=== PATIENT | male | born 1950 | race American Indian/Alaskan Native ===

== ENCOUNTER 2016-12-31 23:29 | Inpatient (IN) | payer MEDICARE ==
[2016-12-31 23:31] VITALS: BMI 41.6
[2017-01-01 00:25] LABS: ADD MANUAL DIFF? NO
[2017-01-01 00:27] LABS: BASO # 0.02 K/mm3 (0.0-2.0); BASO % 0.1 % (0.0-3.0); EOS # 0.2 (0.0-0.7); GRAN # 11.28 (1.4-6.5); GRAN % 72.6 % (50.0-68.0); HEMATOCRIT 46.2 % (42.0-52.0); LYMPH # 2.4 (1.2-3.4); LYMPH % 15.2 % (22.0-35.0); MEAN CELL VOLUME 94.7 fL (80.0-105.0); MEAN CORPUSCULAR HEMOGLOBIN 30.5 pg (25.0-35.0); MEAN CORPUSCULAR HGB CONC 32.3 g/dl (31.0-37.0); MEAN PLATELET VOLUME 12.2 fl (7.0-11.0); MONO # 1.7 (0.1-0.6); MONO % 11.1 % (1.0-6.0); PLATELET COUNT 230 10^3/uL (120.0-450.0); RED CELL DISTRIBUTION WIDTH 12.4 % (11.5-14.5); WHITE BLOOD COUNT 15.6 10^3/ul (4.5-11.0)
--- NOTE | 2017-01-01 00:36 | ED PDOC ---
Arrival/HPI - General Chief Complaint: Chest Pain Time Seen by Provider: 12/31/16 23:56 Historian: Patient - History of Present Illness Narrative History of Present Illness (Text): 01/01/17 00:29 Keenan Paulson is a 66 year old male, whose past medical history includes hypertension, hyperlipidemia, diabetes, prostate CA, leukemia, and pnuemonitis, presents to the emergency department complaining of 5 hour duration of mid- sternal chest pain associated with some mild shortness of breath. States pain radiates upper chest, and notes symptoms feel similar to "reflux" symptoms. Patient informs that pain presented today evening while watching TV, and states chest pain and shortness of breath are currently subsiding. Arrived to emergency department via EMS and was given Aspirin 325mg en route. Denies fever , chills, headache, dizziness, nausea, vomiting, diarrhea, urinary symptoms, or any other complaints at this time. Time/Duration: 4-6 hours (5 hours ) Symptom Onset: Sudden Symptom Course: Improving Severity Level: Mild Activities at Onset: Light Past Medical History - Provider Review Nursing Documentation Reviewed: Yes - Infectious Disease Hx of Infectious Diseases: None - Tetanus Immunization Tetanus Immunization: Unknown - Cardiac Hx Cardiac Arrhythmia: No Hx Congestive Heart Failure: No Hx Hypertension: Yes Hx Internal Defibrillator: No Hx Mitral Valve Prolapse: No Hx Pacemaker: No Hx Peripheral Edema: Yes - Pulmonary Hx Bronchitis: Yes ("pneumonitis") - Neurological Hx Neurological Disorder: No - HEENT Hx HEENT Disorder: Yes Hx Blind: No Hx Cataracts: Yes Hx Deafness: No Hx Difficulty Chewing: No Hx Epistaxis: No Hx Glaucoma: No Hx Macular Degeneration: No - Renal Hx Renal Disorder: No - Endocrine/Metabolic Hx Hyperthyroidism: No Hx Hypothyroidism: No - Hematological/Oncological Hx Cancer: Yes (LEUKEMIA, PROSTATE, COLON) - Integumentary Hx Dermatological Disorder: No - Musculoskeletal/Rheumatological Hx Musculoskeletal Disorders: No - Gastrointestinal Hx Crohn's Disease: No Hx Diverticulitis: No Hx Gastroesophageal Reflux: No Hx Gastrointestinal Ulcer: No Hx Liver Failure: No - Genitourinary/Gynecological Hx Genitourinary Disorders: Yes Hx Hematuria: No Hx Incontinence: No Hx Prostate Problems: Yes (prostate removed) - Psychiatric Hx Depression: No Hx Emotional Abuse: No Hx Physical Abuse: No Hx Substance Use: No - Surgical History Hx Amputation: No Hx Appendectomy: No Hx Cardiac Catheterization: No Hx Cholecystectomy: No Hx Coronary Stent: No Hx Gastric Bypass Surgery: No Hx Hysterectomy: No Hx Joint Replacement: No Hx Kidney Transplant: No Hx Liver Transplant: No Hx Mastectomy: No Hx Open Heart Surgery: No Hx Orthopedic Surgery: No Hx Splenectomy: No Hx Valve Replacement: No - Suicidal Assessment Feels Threatened In Home Enviroment: No Family/Social History - Physician Review Nursing Documentation Reviewed: Yes Family/Social History: No Known Family HX Smoking Status: Never Smoked Hx Alcohol Use: No Hx Substance Use: No Hx Substance Use Treatment: No Allergies/Home Meds Allergies/Adverse Reactions: Allergies No Known Allergies Allergy (Verified 11/10/13 14:39) Home Medications: Home Meds Medication Instructions Recorded Confirmed Acyclovir [Zovirax] 400 mg PO BID 01/01/17 01/01/17 Allopurinol [Zyloprim] 300 mg PO DAILY 01/01/17 01/01/17 Atropine/Diphenoxylate [Lonox 1 tab PO PRN PRN 01/01/17 01/01/17 0.025 MG-2.5 MG] GlipiZIDE [Glucotrol] 5 mg PO DAILY 01/01/17 01/01/17 Ibrutinib [Imbruvica] 140 mg PO TID 01/01/17 01/01/17 Mycophenolate [Cellcept] 250 mg PO DAILY 01/01/17 01/01/17 Pantoprazole [Protonix] 40 mg PO PRN PRN 01/01/17 01/01/17 Sulfamethoxazole/Trimethoprim 1 tab PO .3XW 01/01/17 01/01/17 [Bactrim DS 800 mg-160 mg] predniSONE [predniSONE Tab] 5 mg PO DAILY 01/01/17 01/01/17 Review of Systems - Physician Review All systems were reviewed & negative as marked: Yes - Review of Systems Constitutional: Normal. absent: Fatigue, Fevers Eyes: Normal. absent: Vision Changes, Photophobia Respiratory: SOB. absent: Cough, Sputum Cardiovascular: Chest Pain. absent: Palpitations Gastrointestinal: absent: Abdominal Pain, Diarrhea, Nausea, Vomiting Neurological: Normal. absent: Headache, Dizziness Psychiatric: Normal Physical Exam - Physical Exam Narrative Physical Exam (Text): 01/01/17 00:37 Constitutional: No acute distress. Head: Normocephalic. Atraumatic. Eyes: PERRL. ENT: Moist mucous membranes. Neck: Supple. Cardiovascular: Tachycardia, H.R 105 bpm. Chest: No tenderness. Respiratory: Clear to auscultation bilaterally. GI: Soft. Nontender. Nondistended. Back: No CVA tenderness. Musculoskeletal: No tenderness or swelling of extremities. Skin: No rash. Neurologic: Alert, no focal deficit. Vital Signs Reviewed: Yes Vital Signs Temp Pulse Resp BP Pulse Ox 01/01/17 02:46 98 H 13 105/61 97 12/31/16 23:44 98.9 F 143 H 22 117/69 92 L Temperature: Afebrile Blood Pressure: Normal Pulse: Tachycardic Respiratory Rate: Normal Appearance: Positive for: Well-Appearing, Non-Toxic, Comfortable Pain Distress: None Mental Status: Positive for: Alert and Oriented X 3 Finger Stick Blood Glucose: 202 Medical Decision Making ED Course and Treatment: 01/01/17 00:55 Impression: A 66 year old male who presents to emergency department complaining of mid-sternal chest pain associated with some shortness of breath. Plan: -- EKG -- Labs, cardiac enzymes -- Chest X-ray -- Urine Culture -- Urinalysis -- Reassess and disposition Progress Notes: 01/01/17 00:56 EKG interpreted by me: A-fib @ 145 bpm. Q waves in leads III and aVF. No ST elevations. Repeat EKG: sinus tachycardia @ 101 bpm with PACs. Q wave in leads II, III and aVF. No ST elevations or depressions. 01/01/17 01:30 Chest X-ray interpreted by me: No acute infiltrates or consolidations. Cardiomegaly. Case discussed with Dr. Villanueva, who is aware and agrees with the plan to admit patient to telemetry for new onset atrial fibrillation. Accepts patient under her service with on event mgr consult. - Lab Interpretations Lab Results: 01/01/17 00:10 01/01/17 00:10 Lab Results 01/01/17 00:26: Blood Type A NEGATIVE, Antibody Screen Negative, BBK History Checked Patient has bt 01/01/17 00:10: Sodium 137, Potassium 4.1, Chloride 102, Carbon Dioxide 23, Anion Gap 16, BUN 13, Creatinine 1.0, Est GFR ( Amer) > 60, Est GFR (Non- Af Amer) > 60, Random Glucose 181 H, Calcium 9.7, Total Bilirubin 1.2, AST 33, ALT 51, Alkaline Phosphatase 52, Total Creatine Kinase 172, Troponin I 0.02 D, Total Protein 7.0, Albumin 4.2, Globulin 2.8, Albumin/Globulin Ratio 1.5 01/01/17 00:10: PT 10.5, INR 0.97, APTT 24.1 01/01/17 00:10: WBC 15.6 H, RBC 4.88, Hgb 14.9, Hct 46.2, MCV 94.7, MCH 30.5, MCHC 32.3, RDW 12.4, Plt Count 230, MPV 12.2 H, Gran % 72.6 H, Lymph % (Auto) 15.2 L, [place] % (Auto) 11.1 H, Eos % (Auto) 1.0 L, Baso % (Auto) 0.1, Gran # 11.28 H, Lymph # 2.4, [place] # 1.7 H, Eos # 0.2, Baso # 0.02 12/31/16 23:43: POC Glucose (mg/dL) 202 H - RAD Interpretation Radiology Orders: 01/01/17 00:06 CHEST PORTABLE [RAD] Stat - Medication Orders Current Medication Orders: Discontinued Medications Acetaminophen (Tylenol 325mg Tab) 650 mg PO ONCE ONE Stop: 01/01/17 03:49 Last Admin: 01/01/17 03:56 Dose: 650 mg Re-Assess: MAR Pain/Vitals Document 01/01/17 04:56 DS (Rec: 01/01/17 05:02 DS [id number]) Pain Reassessment Is This A Pain ReAssessment? Yes Presence of Pain Presence of Pain Yes Pain Scale Used Pain Scale Used Numeric Location Pain Location Body Site Chest Description Throbbing Intensity 6 Scale Used Numeric Radiation Location None Variations/Patterns Pt reports no relief of pain. Nitroglycerin (Nitrostat Sl Tab) 0.4 mg SL Q5M [facility] Stop: 01/01/17 03:41 Last Admin: 01/01/17 03:43 Dose: Not Given Non-Admin Reason: BP Parameters Not Met Nitroglycerin (Nitrostat Sl Tab) Confirm Administered Dose 0.4 mg SL .STK-MED ONE Stop: 01/01/17 03:32 Last Admin: 01/01/17 03:35 Dose: Oxycodone HCl (Oxycodone Immediate Release Tab) 5 mg PO ONCE ONE Stop: 01/01/17 05:09 Last Admin: 01/01/17 05:17 Dose: 5 mg - Millieibe Statement The provider has reviewed the documentation as recorded by the Vivi Bueno Provider Attestation: All medical record entries made by the Vivi were at my direction and personally dictated by me. I have reviewed the chart and agree that the record accurately reflects my personal performance of the history, physical exam, medical decision making, and the department course for this patient. I have also personally directed, reviewed, and agree with the discharge instructions and disposition. Disposition/Present on Arrival - Present on Arrival Any Indicators Present on Arrival: No History of DVT/PE: No History of Uncontrolled Diabetes: No Urinary Catheter: No History of Decub. Ulcer: No History Surgical Site Infection Following: None - Disposition Have Diagnosis and Disposition been Completed?: Yes Diagnosis: New onset atrial fibrillation, Chest pain Disposition: HOSPITALIZED Disposition Time: :31 Patient Plan: Admission, Telemetry Condition: GUARDED
[2017-01-01 00:41] LABS: INR 0.97 (0.93-1.08); PARTIAL THROMBOPLASTIN TIME 24.1 Seconds (23.7-30.8)
[2017-01-01 00:47] LABS: ALB/GLOB RATIO 1.5 (1.1-1.8); ALKALINE PHOSPHATASE 52 U/L (38-133); ALT/SGPT 51 U/L (7-56); AST/SGOT 33 U/L (15-59); BILIRUBIN,TOTAL 1.2 mg/dL (0.2-1.3); BLOOD UREA NITROGEN 13 mg/dL (7-21); CALCIUM 9.7 mg/dL (8.4-10.5); CARBON DIOXIDE 23 mmol/L (21-33); CHLORIDE 102 mmol/L (98-107); GFR AFRICAN-AMERICAN > 60; GLUCOSE,RANDOM 181 mg/dL (70-110); POTASSIUM 4.1 mmol/L (3.6-5.0); SODIUM 137 mmol/L (132-148)
[2017-01-01 00:56] LABS: TROPONIN I 0.02 ng/mL
[2017-01-01] MEDS ORDERED: oxyCODONE 5 mg Immediate Release Tab PO ONE (05:08)
[2017-01-01 06:44] LABS: ADD MANUAL DIFF? NO
[2017-01-01 06:54] LABS: BASO # 0.02 K/mm3 (0.0-2.0); BASO % 0.1 % (0.0-3.0); EOS % 0.1 % (1.5-5.0); GRAN # 13.12 (1.4-6.5); GRAN % 82.3 % (50.0-68.0); HEMATOCRIT 42.3 % (42.0-52.0); LYMPH # 0.8 (1.2-3.4); LYMPH % 5.2 % (22.0-35.0); MEAN CELL VOLUME 94.6 fL (80.0-105.0); MEAN CORPUSCULAR HEMOGLOBIN 31.1 pg (25.0-35.0); MEAN CORPUSCULAR HGB CONC 32.9 g/dl (31.0-37.0); MEAN PLATELET VOLUME 11.7 fl (7.0-11.0); MONO % 12.3 % (1.0-6.0); PLATELET COUNT 204 10^3/uL (120.0-450.0); RED CELL DISTRIBUTION WIDTH 12.5 % (11.5-14.5)
[2017-01-01 07:04] LABS: INR 1.03 (0.93-1.08); PARTIAL THROMBOPLASTIN TIME 25.9 Seconds (23.7-30.8)
[2017-01-01 07:10] LABS: ALB/GLOB RATIO 1.5 (1.1-1.8); ALKALINE PHOSPHATASE 45 U/L (38-133); ALT/SGPT 42 U/L (7-56); AST/SGOT 26 U/L (15-59); BILIRUBIN,TOTAL 1.3 mg/dL (0.2-1.3); BLOOD UREA NITROGEN 17 mg/dL (7-21); CALCIUM 9.2 mg/dL (8.4-10.5); CARBON DIOXIDE 24 mmol/L (21-33); CHLORIDE 103 mmol/L (98-107); GFR AFRICAN-AMERICAN > 60; GLUCOSE,RANDOM 228 mg/dL (70-110); POTASSIUM 4.1 mmol/L (3.6-5.0); SODIUM 137 mmol/L (132-148); TOTAL PROTEIN 6.2 g/dL (5.8-8.3)
[2017-01-01 07:19] LABS: TROPONIN I 0.03 ng/mL
[2017-01-01 07:41] LABS: D DIMER 0.31 mg/L FEU (0-0.50)
--- NOTE | 2017-01-01 08:53 | RAD ---
HISTORY: cp, new onset afib COMPARISON: 10/13/2013 FINDINGS: LUNGS: No active pulmonary disease. PLEURA: No significant pleural effusion identified, no pneumothorax apparent. CARDIOVASCULAR: Moderate cardiomegaly OSSEOUS STRUCTURES: No significant abnormalities. VISUALIZED UPPER ABDOMEN: Normal. OTHER FINDINGS: None. IMPRESSION: No active disease.
[2017-01-01 11:00] LABS: CHOLESTEROL 194 mg/dL (130-200)
--- NOTE | 2017-01-01 11:56 | CARD ---
APPROVED REPORT EKG Measurement Heart [id number] <Conclusion> Sinus tachycardia with premature atrial complex Left axis deviation, LAHB PRWP NSSTW changes
--- NOTE | 2017-01-01 11:58 | CARD ---
APPROVED REPORT EKG Measurement Heart [id number] <Conclusion> Atrial fibrillation with rapid ventricular response Left axis deviation Inferior infarct, age undetermined PRWP QS in V1, possible septal WA, age unknown ST & T wave abnormality c/w ischemia
--- NOTE | 2017-01-01 12:28 | CON ---
DATE: 01/01/2017 HISTORY OF PRESENT ILLNESS: The patient is a 66-year-old male who presents with tingling of his ches t as well as his chest wall. This was associated with a narrow complex tachycardia, which might be a trial fibrillation versus an SVT. PAST MEDICAL HISTORY: Notable for diabetes mellitus, hypertension and hyperlipidemia as well as a le ukemia treated with chemotherapy at [facility]. The patient has had no previous cardiac history in the past. He denies angina, denies shortness of b reath. He has suffered a pneumonitis in the past and has been followed by a velocity shooter. Currently, the patient is asymptomatic. SOCIAL HISTORY: The patient does not smoke. REVIEW OF SYSTEMS: A 14-point is free of cardiac symptomatology. PHYSICAL EXAMINATION: VITAL SIGNS: Blood pressure is 140/80, the heart rate is in the 70s, normal sinus rhythm. NECK: Negative JVD. LUNGS: Without rales. HEART: Revealed S1, S2. EXTREMITIES: Without edema. EKG shows a narrow complex tachycardia, either atrial fibrillation versus an SVT. LABORATORIES: Reveal troponins that are negative x 2. Glucose is 228. The hemoglobin is 13.3 with a white count of 16,000. IMPRESSION: 1. Palpitations. 2. Narrow complex tachycardia, either atrial fibrillation versus supraventricular tachycardia, which is now resolved. 3. Diabetes mellitus. 4. Hypertension. 5. Hypercholesterolemia. 6. History of leukemia, which is considered cured after treatment at [facility]. Given these findings, we will obtain an echocardiogram today. We will add a beta ladonna to his dee men. If the patient remains stable over the weekend, he can be discharged. We will arrange for an outpati ent stress test next week. Harmeet Howard MD cc: [phone] TT: 01/01/2017 12:27:59 Confirmation # [id number] Dictation # [id number]
--- NOTE | 2017-01-01 14:19 | CON ---
DATE: 01/01/2017 The patient is in room 275, bed 2. CHIEF COMPLAINT: Elevated WBC count x 1 day duration. HISTORY OF PRESENT ILLNESS: This is a 66-year-old male with past medical history of stage IV chronic lymphocytic leukemia, hypertension, diabetes mellitus, history of bronchitis, history of prostate ca ncer and was being followed at [facility] and had a bone marrow biopsy at [facility] and ad mitted with chest pain, initially found to have an elevated WBC. Infectious disease consultation req uested. The patient at this point states that his chest pain is resolved. He is feeling better. No nausea, no vomiting and he denies any fevers and no chills. No headaches or blurred vision. PAST MEDICAL HISTORY: Significant for diabetes mellitus, hypertension, stage IV CLL, hyperlipidemia, prostate cancer, colon cancer, obesity, BMI of 33. PAST SURGICAL HISTORY: Significant for recent bone marrow biopsy approximately [address] [facility]. ALLERGIES: The patient has no known allergies. MEDICATIONS AT HOME: Include acyclovir, Zyloprim, atropine, Glucotrol, CellCept, Bactrim, prednisone . PHYSICAL EXAMINATION: GENERAL: He is in bed, no acute distress, answering questions. VITAL SIGNS: Temperature of 98, heart rate of 102, respiratory rate of 22 yesterday, is down to 20 t gladis, blood pressure is 130/70. HEENT: Unremarkable. NECK: Supple. LUNGS: Have decreased breath sounds. HEART: Normal S1, S2. ABDOMEN: Soft, nontender. LABORATORY EXAMINATION: Reveals a white count of 16,000, hemoglobin of 13. Coagulation is noted. C hemistries reveal the BUN of 17, creatinine of 1.3. It was 0.9 on last admission. LFTs are normal. There is no urinalysis and the white count in the past has been in the 70,000, 80,000, 90,000 range. The patient had a chest x-ray: No active lung disease. Had an echo which results are not availabl e. The EKG is reviewed. QTC of 459. No microbiology available at this time. ASSESSMENT AND PLAN: A 66-year-old male with chronic lymphocytic leukemia, stage IV; hypertensive, d iabetic with history of prostate cancer, colon cancer and obesity with body mass index of 33, a histo ry of hyperlipidemia and now with tachycardia, dyspnea with systemic inflammatory response syndrome a nd acute kidney injury. Creatinine last admission 0.9, on this admission is 1.3, presenting with jessi st pain and white count of 16,000 with 82% granulocytosis. Must rule out healthcare-associated pneum onia. We will order a CT of the chest since the chest x-ray is reported to be negative. Because of the renal insufficiency, we will not use contrast and cough and chest pain to rule out infiltrate. W e will also order a procalcitonin. We will order blood cultures x 2, urinalysis and urine culture an d we will start empiric antibiotic therapy for healthcare-associated pneumonia with Maxipime and doxy cycline due to the QTC prolongation of 459. We will make further recommendations upon the availabili ty of the initial culture and imaging. Chest pain workup with cardiology as per cardiology, although thus far, 2 troponins are negative which speaks against acute coronary syndrome. [facility]. We will also order Dopplers of the lower extremities to rule out deep venous thr ombosis. Marvin Williamson MD cc: [phone] TT: 01/01/2017 14:18:21 Confirmation # [id number] Dictation # [id number] tn
--- NOTE | 2017-01-01 15:27 | CT ---
PROCEDURE: CT Chest without contrast HISTORY: cough , chest pain,r/o infiltrate COMPARISON: 10/09/2013 TECHNIQUE: Contiguous axial images were obtained through the chest without intravenous contrast enhancement. Sagittal and coronal reconstructions were performed. Radiation dose (DLP): 732 mGy-cm. This CT exam was performed using one or more of the following dose reduction techniques: Automated exposure control, adjustment of the mA and/or kV according to patient size, and/or use of iterative reconstruction technique. FINDINGS: LUNGS: Dense alveolar infiltrates are seen at both lung bases with air bronchograms. Findings are consistent with pneumonia. MEDIASTINUM: Unremarkable thoracic aorta. No aneurysm. Normal sized heart. Main pulmonary artery unremarkable. No vascular congestion. No lymphadenopathy. PLEURA: No pleural fluid. No pneumothorax. BONES: No fracture. No destructive lesion. UPPER ABDOMEN: Grossly unremarkable. OTHER FINDINGS: There is a 3.8 cm mass rising from the left lobe of the thyroid extending into the mediastinum. This is unchanged IMPRESSION: Dense alveolar infiltrates of both lung bases with air bronchograms consistent with pneumonia
[2017-01-01] MEDS ORDERED: Oxycodone/Acetaminophen 5/325 mg Tab PO PRN (16:53)
--- NOTE | 2017-01-01 18:04 | US ---
HISTORY: Leg pain and swelling. Evaluate for DVT PHYSICIAN(S): Harmeet Gamez MD. TECHNIQUE: Duplex sonography and color-flow Doppler with graded compression were used to evaluate the deep venous systems of both lower extremities. FINDINGS: The visualized deep venous systems of both lower extremities are sonographically normal and compressible. Normal wave forms and augmentation are seen. There is no sonographic evidence for deep venous thrombosis in the visualized segments of both lower extremities. IMPRESSION: No sonographic evidence for deep venous thrombosis in the visualized segments of both lower extremities.
[2017-01-01] MEDS: IBRUTINIB 140 MG PO SCH (18:06)
[2017-01-01] MEDS: Vancomycin 25 MG/ML PO SCH ×2 (18:39→22:55)
--- NOTE | 2017-01-01 18:51 | HP ---
HISTORY OF PRESENT ILLNESS: The patient is a 66-year-old patient of . He states last night he started to have aching sensation in the chest. He waited for awhile subside itself, , but he did not feel any improvement. Denies any fever or chills. No history of cough or congestion, no dizziness. The patient is not a very good historian. He did mention that he had some rapid heartbea t. He did not have recent history of any nausea or vomiting. PAST MEDICAL HISTORY: Significant past medical history of 1. Non-insulin dependent diabetes. 2. Hypertension. 3. Hyperlipidemia. 4. Chronic lymphocytic leukemia and is being seen by oncologist in [facility]. 5. History of cancer of prostate. 6. History of cancer of colon. PAST SURGICAL HISTORY: Significant for bone marrow biopsy 2-3 months ago. ALLERGIES: Not allergic to any medications. MEDICATIONS AT HOME: He is on Protonix 40 daily, allopurinol 300 daily, prednisone 5 mg daily, glipi zide 5 mg daily, Zovirax 400 twice a day, Bactrim 1 tablet 3 times a week and CellCept 250 daily and 140 three times a day. SOCIAL HISTORY: Denies smoking, drinking. REVIEW OF SYSTEMS: Significant for tingling in the chest. Complained of pain and shortness of breat h. No nausea, vomiting or diarrhea. VITAL SIGNS: He is afebrile, pulse 95, respirations 20, blood pressure 167/61. LUNGS: Bilateral good airflow, no rhonchi or crackle. HEART: S1, S2 audible. No murmur. LABORATORY DATA: WBC is 16.0, hemoglobin 13.9, hematocrit 42.3, platelets of 204, PT 11.1, INR 1.03. Chemistry: Sodium 137, potassium 4.1, chloride 103, CO2 24, BUN 17, creatinine 1.3, blood sugar of 228. LFTs are within normal limits. Troponin is negative. Had x-ray chest done. CT scan of the c hest shows dense alveolar infiltrate in both bases with air bronchograms consistent with pneumonia. ASSESSMENT: 1. Chest pain, probably secondary to community-acquired pneumonia. 2. Chronic lymphocytic leukemia. 3. Hypertension. 4. Non-insulin dependent diabetes. PLAN: To get blood culture, urine culture and start him on nebulizer treatment. We will renew his m edications including . Continue him on Protonix and also gave him Zovirax and Zyloprim. He has been started on doxycycline and cefepime by ID. Beta ladonna has been added by proof technician. Encou rage out of bed to chair to avoid DVT, order for EFRAIN fernandes. We will reevaluate the patient in a. m. Mary Anne Villanueva MD cc: [phone] TT: 01/01/2017 18:50:21 dn
[2017-01-01 19:02] LABS: URINE BILIRUBIN NEGATIVE (NEGATIVE); URINE BLOOD SMALL (NEGATIVE); URINE GLUCOSE (UA) >=1000 mg/dL (NEGATIVE); URINE KETONE NEGATIVE (NEGATIVE); URINE LEUKOCYTE ESTERASE NEGATIVE Leu/uL (NEGATIVE); URINE PROTEIN TRACE mg/dL (<30 mg/dL); URINE UROBILINOGEN 0.2 E.U./dL (<1 E.U./dL)
[2017-01-01 19:03] LABS: URINE APPEARANCE CLEAR (CLEAR); URINE COLOR LIGHT YELLOW (YELLOW)
[2017-01-01 19:18] LABS: URINE BACTERIA NEG (NEG); URINE EPITHELIAL CELLS 0 - 2 /hpf (0-5); URINE RBC NEGATIVE /hpf (0-2); URINE WBC 0 - 2 /hpf (0-6)
[2017-01-01] MEDS: Levalbuterol 1.25 MG/3 ML Inhal Soln UD IH SCH (20:00)
--- NOTE | 2017-01-01 20:43 | CARD ---
APPROVED REPORT EXAM: Two-dimensional and M-mode echocardiogram with Doppler and color Doppler. INDICATION Atrial Fibrillation Chest Pain SVT 2D DIMENSIONS Left Atrium (2D)4.2 (1.6-4.0cm)IVSd1.4 (0.7-1.1cm) LVDd4.5 (3.9-5.9cm)PWd1.3 (0.7-1.1cm) LVDs3.0 (2.5-4.0cm)FS (%) 33.0 % LVEF (%)61.7 (>50%) M-Mode DIMENSIONS Aortic Root3.70 (2.2-3.7cm)Aortic Cusp Exc.2.00 (1.5-2.0cm) Aortic Valve AoV Peak Aryxlybj737.0cm/Viola Peak GR.8mmHg Mitral Valve MV E Qicnlzfd86.8cm/sMV A Uprnysam17.0cm/sE/A ratio1.1 TDI E/Lateral E'0.0E/Medial E'0.0 Tricuspid Valve TR Peak Ujdrkyis314xs/sRAP [id number] Peak Gr.40mmHg [id number] LEFT VENTRICLE The left ventricle is normal size. There is moderate concentric left ventricular hypertrophy. The left ventricular function is normal. The left ventricular ejection fraction is within the normal range. There is normal LV segmental wall motion. Transmitral Doppler flow pattern is Grade I-abnormal relaxation pattern. RIGHT VENTRICLE The right ventricle is normal size. The right ventricle is mildly hypertrophied. The right ventricular systolic function is normal. ATRIA The left atrium is borderline dilated. The right atrium is mildly dilated. AORTIC VALVE The aortic valve is moderately sclerotic. MITRAL VALVE The mitral valve is moderately thickened. TRICUSPID VALVE There is moderate tricuspid regurgitation. There is moderate pulmonary hypertension. PULMONIC VALVE There is trace pulmonic valvular regurgitation. GREAT VESSELS The aortic root displays moderate sclerocalcific changes of the aortic root. The IVC is normal in size and collapses >50% with inspiration. PERICARDIAL EFFUSION There is no pericardial effusion. <Conclusion> The left ventricle is normal size. There is moderate concentric left ventricular hypertrophy. The left ventricular function is normal. The left ventricular ejection fraction is within the normal range. There is normal LV segmental wall motion. Transmitral Doppler flow pattern is Grade I-abnormal relaxation pattern. There is moderate tricuspid regurgitation. There is moderate pulmonary hypertension.
[2017-01-01] MEDS: Cefepime 1gm in NS 100ml 1 GM/100 ML BAG IVPB SCH (21:46)
[2017-01-01] MEDS: Insulin Lispro (humaLOG) MEDIUM Coverage SC SCH (23:02)
[2017-01-02] MEDS: Levalbuterol 1.25 MG/3 ML Inhal Soln UD IH SCH ×4 (01:07→19:45)
[2017-01-02 06:04] LABS: URINE BILIRUBIN NEGATIVE (NEGATIVE); URINE BLOOD SMALL (NEGATIVE); URINE GLUCOSE (UA) >=1000 mg/dL (NEGATIVE); URINE KETONE NEGATIVE (NEGATIVE); URINE LEUKOCYTE ESTERASE NEGATIVE Leu/uL (NEGATIVE); URINE PROTEIN TRACE mg/dL (<30 mg/dL); URINE UROBILINOGEN 0.2 E.U./dL (<1 E.U./dL)
[2017-01-02] MEDS: Pantoprazole 40 mg EC Tab PO SCH (06:11)
[2017-01-02 06:14] LABS: URINE APPEARANCE CLEAR (CLEAR); URINE COLOR YELLOW (YELLOW)
[2017-01-02 06:28] LABS: URINE BACTERIA SMALL (NEG); URINE EPITHELIAL CELLS 0 - 2 /hpf (0-5); URINE RBC 0 - 2 /hpf (0-2); URINE WBC 0 - 2 /hpf (0-6)
[2017-01-02 07:34] LABS: ADD MANUAL DIFF? NO
[2017-01-02 07:43] LABS: BASO # 0.01 K/mm3 (0.0-2.0); BASO % 0.1 % (0.0-3.0); EOS # 0.1 (0.0-0.7); EOS % 0.7 % (1.5-5.0); GRAN # 9.75 (1.4-6.5); GRAN % 79.4 % (50.0-68.0); HEMATOCRIT 44.1 % (42.0-52.0); LYMPH # 1.1 (1.2-3.4); MEAN CELL VOLUME 94.8 fL (80.0-105.0); MEAN CORPUSCULAR HEMOGLOBIN 30.1 pg (25.0-35.0); MEAN CORPUSCULAR HGB CONC 31.7 g/dl (31.0-37.0); MEAN PLATELET VOLUME 11.6 fl (7.0-11.0); MONO # 1.3 (0.1-0.6); MONO % 10.8 % (1.0-6.0); PLATELET COUNT 196 10^3/uL (120.0-450.0); RED CELL DISTRIBUTION WIDTH 12.7 % (11.5-14.5); WHITE BLOOD COUNT 12.3 10^3/ul (4.5-11.0)
[2017-01-02 07:56] LABS: ALB/GLOB RATIO 1.1 (1.1-1.8); ALKALINE PHOSPHATASE 52 U/L (38-133); ALT/SGPT 42 U/L (7-56); AST/SGOT 23 U/L (15-59); BILIRUBIN,TOTAL 1.4 mg/dL (0.2-1.3); BLOOD UREA NITROGEN 14 mg/dL (7-21); CALCIUM 9.4 mg/dL (8.4-10.5); CARBON DIOXIDE 27 mmol/L (21-33); CHLORIDE 104 mmol/L (98-107); CHOLESTEROL 211 mg/dL (130-200); GFR AFRICAN-AMERICAN > 60; GLUCOSE,RANDOM 161 mg/dL (70-110); SODIUM 139 mmol/L (132-148); TOTAL PROTEIN 7.1 g/dL (5.8-8.3); URIC ACID 6.2 mg/dL (3.5-8.5)
[2017-01-02 08:18] LABS: FREE T4 0.93 ng/dL (0.78-2.19)
[2017-01-02] MEDS: Insulin Lispro (humaLOG) MEDIUM Coverage SC SCH ×4 (08:26→22:16)
[2017-01-02 08:33] LABS: THYROID STIMULATING HORMONE 0.57 mIU/mL (0.46-4.68)
[2017-01-02] MEDS: IBRUTINIB 140 MG PO SCH ×2 (09:14→17:12)
[2017-01-02] MEDS: Cefepime 1gm in NS 100ml 1 GM/100 ML BAG IVPB SCH ×2 (09:22→21:37)
[2017-01-02] MEDS: Vancomycin 25 MG/ML PO SCH (09:28)
[2017-01-02] MEDS ORDERED: Pantoprazole 40 mg EC Tab PO PRN (10:00)
--- NOTE | 2017-01-02 12:26 | PN ---
DATE: 01/02/2017 SUBJECTIVE: The patient is a 66-year-old, seen and examined, anxious to go home for Mother's Day. D enies any fever or chills. No cough or congestion, no palpitation, no headache. PHYSICAL EXAMINATION: VITAL SIGNS: He is afebrile, pulse 80, respirations 20, blood pressure 163/75. LUNGS: Bilateral good airflow, few soft crackles at bases. HEART: S1, S2 audible. ABDOMEN: Soft, obese, nontender, no rebound, no guarding. NEUROLOGIC: He is awake and alert, communicative, ambulatory. LABORATORY EXAMINATION: WBC is 12.3, hemoglobin 14, hematocrit 44, platelet 196. Chemistry: Sodium 139, potassium 4.0, chloride 104, CO2 27, BUN 14, creatinine 1.0, blood sugar 161. Procalcitonin 0. 57. Stool for C. diff is negative. ASSESSMENT: 1. Bilateral basal alveolar infiltrates. 2. Morbid obesity. 3. Non-insulin dependent diabetes. 4. Hypertension. 5. Chronic lymphocytic leukemia under the care of oncologist in [facility]. PLAN: The patient is very anxious to go home. He was explained that because he is immunocompromised , IV antibiotic is very important. He agreed to stay until Wednesday to continue his IV antibiotic. Co ntinue to monitor his blood sugar and cardiac monitoring. Mary Anne Villanueva MD cc: [phone] TT: 01/02/2017 12:25:12 Confirmation # [id number] Dictation # [id number]
--- NOTE | 2017-01-02 13:33 | PN ---
DATE: 01/02/[address] Harmeet Howard. SUBJECTIVE: The patient denies any palpitation. He is slightly short of breath. PHYSICAL EXAMINATION: VITAL SIGNS: Blood pressure 163/75, heart rate 88, temperature 98.4, respirations 20. HEENT: Normocephalic. NECK: No JVD. CHEST: Bibasal crepitations. HEART: S1, S2 regular. EXTREMITIES: 1+ pitting edema. LABORATORIES: Today's CBC: WBC 12.3, hemoglobin 14, hematocrit 44.1, platelet count 196,000. PT, P TT and D-dimer are within normal limits. SMA-7 today is within normal limits except for glucose of 1 61. Echocardiographic study revealed moderate concentric LVH with normal ejection fraction and moder ate pulmonary hypertension. EKG on admission revealed atrial fibrillation with a rapid ventricular r esponse at 145, anterior infarct, age indeterminate; poor R-wave progression,, ST-T wave changes cons istent with ischemia. That was the EKG report and I had difficulty opening the image itself. ASSESSMENT: 1. Palpitation. 2. Narrow complex tachycardia, rapid atrial fibrillation versus supraventricular tachycardia. 3. Hypertension. 4. Hyperlipidemia. 5. Chronic myelocytic leukemia. 6. History of colon cancer. 7. History of prostatic cancer. 8. Bilateral pneumonia. The chest CT scan was consistent with dense alveolar infiltrate of both adithya g bases with air bronchograms. 9. Chronic lymphocytic anemia. RECOMMENDATIONS: Continue current doxycycline 100 mg orally twice a day, oral Flagyl at 500 mg q. 8 hours, Lopressor at 25 mg once a day, prednisone 5 mg once a day, vancomycin at 250 mg p.o. q.i.d., Z ovirax 400 mg p.o. twice a day. Pedro Loyola MD cc: [id number] TT: 01/02/2017 13:33:06 Confirmation # [id number] Dictation # [id number]
[2017-01-02] MEDS ORDERED: IBRUTINIB 140 MG PO SCH ×2 (14:00)
--- NOTE | 2017-01-02 14:01 | PN ---
DATE: 01/02/2017 The patient is in bed in no acute distress, nontoxic. PHYSICAL EXAMINATION: VITAL SIGNS: Temperature is 98, blood pressure is 160/70, respiratory rate of 20, heart rate of 91. HEENT: Unremarkable. NECK: Supple. LUNGS: Decreased breath sounds. HEART: Normal S1, S2. ABDOMEN: Soft, nontender. LABORATORY EXAMINATION: Reveals the white count is down to 12,300, hemoglobin of 14, platelets of 19 6. Chemistries reveal the patient's BUN of 14, creatinine of 1.2, procalcitonin is 0.57. Urinalysis is unremarkable. Microbiology reveals the urine culture has no growth and stool for C. diff antigen and toxin are both negative. Review of the orders reveals the patient to be on p.o. Flagyl, p.o. do xycycline and IV cefepime and p.o. vancomycin. ASSESSMENT AND PLAN: A 66-year-old male with chronic lymphocytic leukemia, stage IV; hypertensive, d iabetes mellitus, history of prostate cancer, colon cancer, obesity with a body mass index of 33, wit h a history of hyperlipidemia with tachycardia, dyspnea and now with sepsis. CAT scan of chest shows dense alveolar infiltrates in both lung bases with air bronchograms consistent with pneumonia. Ultr asound Dopplers of the lower extremities are negative, on p.o. doxycycline and IV cefepime. With the Clostridium difficile toxin and antigen negative, we will discontinue the p.o. Flagyl and p.o. vanco mycin. Would complete 4-7 days. Today is day #2 of 4-7 days of antibiotics for this 66-year-old mal e with chronic lymphocytic leukemia which is stage IV, and sepsis with healthcare-associated pneumoni a. Initial chest x-ray was negative; however, CAT scan does show infiltrates in this patient who ini tially presented with dyspnea and tachycardia. Cultures so far are negative. The patient does have probable bacterial healthcare-associated pneumonia due to elevated procalcitonin and leukocytosis whi appears to be improving. Marvin Williamson MD cc: [id number] TT: 01/02/2017 14:00:43 Confirmation # [id number] Dictation # [id number]
[2017-01-02] MEDS ORDERED: Digoxin 500 mcg/2ml (0.5 mg/2ml) Inj IVP ONE (15:59)
[2017-01-02] MEDS ORDERED: Home Med 1 UNIT PO SCH (18:00)
[2017-01-03] MEDS: Levalbuterol 1.25 MG/3 ML Inhal Soln UD IH SCH ×4 (01:09→21:00)
--- NOTE | 2017-01-03 02:56 | CP.PCM.PN ---
Subjective - Date & Time of Evaluation Date of Evaluation: 01/03/17 Time of Evaluation: 02:54 - Subjective Subjective: Patient was seen at bedside because nurse calls and tells that heart rate went upto 160/min. Confirmed with orthodontic laboratory technician.There were no PVC's.Heart rate is in the 120's now. I already have ordered digoxin 0.25 mg IV . Patient received digoxin 0.25 mg IV earlier about 4 PM which was ordered by for elevated heart rate. has no chest pain, sob, nausea, palpitation. States that he has not been able to sleep. Medical record was reviewed. This 66 year old male was admitted with tingling of chest wall , palpitations, atrial fibrillation vs SVT. Has PMH of HTN ,DM, hyperlipidemia,Chronic Lympahtic lukemia treated with chemotherapy,prostate cancer, colon cancer, obesity,bone marrow biopsy. Objective - Vital Signs/Intake and Output Vital Signs (last 24 hours): Temp Pulse Resp BP Pulse Ox 98.7 F 90 20 148/78 98 01/03/17 00:01 01/03/17 00:01 01/03/17 00:01 01/03/17 01:59 01/02/17 05:50 Intake and Output: 01/02/17 01/03/17 18:59 06:59 Intake Total 480 Balance 480 - Medications Medications: Current Medications Acyclovir (Zovirax) 400 mg PO BID [facility] Last Admin: 01/02/17 17:13 Dose: 400 mg Allopurinol (Zyloprim) 300 mg PO DAILY [facility] Last Admin: 01/02/17 09:21 Dose: 300 mg Doxycycline Hyclate (Doryx) 100 mg PO Q12 [facility] PRN Reason: Protocol Stop: 01/10/17 22:01 Last Admin: 01/02/17 21:37 Dose: 100 mg Glipizide (Glucotrol) 5 mg PO ACB [facility] Last Admin: 01/02/17 09:21 Dose: 5 mg Home Med (Home Med) 3 unit PO DAILY [facility] Last Admin: 01/02/17 17:12 Dose: 3 unit Cefepime HCl (Maxipime 1gm) 1 gm in 100 mls @ 100 mls/hr IVPB Q12 [facility] PRN Reason: Protocol Stop: 01/10/17 22:01 Last Admin: 01/02/17 21:37 Dose: 100 mls/hr Insulin Human Lispro (Humalog Med) 0 units SC ACHS [facility] PRN Reason: Protocol Last Admin: 01/02/17 22:16 Dose: Not Given Levalbuterol HCl (Xopenex) 1.25 mg IH [id number] [facility] Last Admin: 01/03/17 01:09 Dose: Not Given Metoprolol Tartrate (Lopressor) 25 mg PO BID [facility] Last Admin: 01/02/17 17:12 Dose: 25 mg Mycophenolate Mofetil (Cellcept Cap) 250 mg PO DAILY [facility] Last Admin: 01/02/17 09:21 Dose: 250 mg Oxycodone/Acetaminophen (Percocet 5/325 Mg Tab) 1 tab PO Q4H PRN PRN Reason: Pain, moderate (4-7) Stop: 01/04/17 16:54 Pantoprazole Sodium (Protonix Ec Tab) 40 mg PO 0630 [facility] Last Admin: 01/02/17 06:11 Dose: 40 mg Prednisone (Prednisone Tab) 5 mg PO DAILY [facility] Last Admin: 01/02/17 09:21 Dose: 5 mg - Labs Labs: 01/02/17 07:00 01/02/17 07:00 PT 11.1 Seconds (9.9-11.8) 01/01/17 06:30 INR 1.03 (0.93-1.08) 01/01/17 06:30 APTT 25.9 Seconds (23.7-30.8) 01/01/17 06:30 - Constitutional Appears: Well, No Acute Distress - Head Exam Head Exam: ATRAUMATIC, NORMAL INSPECTION, NORMOCEPHALIC - Eye Exam Eye Exam: Normal appearance - ENT Exam ENT Exam: Normal External Ear Exam - Neck Exam Neck Exam: Normal Inspection - Respiratory Exam Respiratory Exam: NORMAL BREATHING PATTERN - Cardiovascular Exam Cardiovascular Exam: absent: JVD - GI/Abdominal Exam GI & Abdominal Exam: absent: Distended - Rectal Exam Rectal Exam: Deferred - Extremities Exam Extremities Exam: Normal Inspection - Back Exam Back Exam: NORMAL INSPECTION - Neurological Exam Neurological Exam: Alert, Oriented x3 - Psychiatric Exam Psychiatric exam: Normal Affect, Normal Mood - Skin Skin Exam: Normal Color Assessment and Plan - Assessment and Plan (Free Text) Assessment: A/P:Atrial fibrillation with RVR. Insomnia/Anxiety. DM. HTN. Hypercholesterolemia. Hx Chronic lymphatic lukemia. Hx Colon cancer, prostate cancer. Digoxin 0.25 mg IV x 1. Xanax 0.5 mg PO x 1. BMP, Magnesium level in AM.
[2017-01-03] MEDS ORDERED: Digoxin 500 mcg/2ml (0.5 mg/2ml) Inj IVP ONE (02:57)
[2017-01-03 03:23] VITALS: PULSE 132
[2017-01-03] MEDS: Pantoprazole 40 mg EC Tab PO SCH (05:59)
[2017-01-03 07:55] LABS: BLOOD UREA NITROGEN 14 mg/dL (7-21); CALCIUM 9.3 mg/dL (8.4-10.5); CARBON DIOXIDE 23 mmol/L (21-33); CHLORIDE 106 mmol/L (95-110); GFR AFRICAN-AMERICAN > 60; GLUCOSE,RANDOM 165 mg/dL (70-110); POTASSIUM 4.1 mmol/L (3.6-5.0); SODIUM 139 mmol/L (132-148)
[2017-01-03] MEDS: Insulin Lispro (humaLOG) MEDIUM Coverage SC SCH ×4 (08:04→21:15)
--- NOTE | 2017-01-03 09:00 | PN ---
DATE: 01/03/2017 The patient is in bed, was seen in [facility], bed 2 this morning. No fevers and chills. PHYSICAL EXAMINATION: VITAL SIGNS: Temperature is 98. Blood pressure is 160/80, respiratory rate of 20, heart rate of 121 . HEENT: Unremarkable. NECK: Supple. LUNGS: Have decreased breath sounds. HEART: Normal S1, S2. ABDOMEN: Soft, nontender. LABORATORY EXAMINATION: Reveals the patient's white count of 12,300 as of yesterday, hemoglobin of 1 4, platelets of 196, BUN of 14, creatinine of 1.0. Procalcitonin is elevated at 0.57, and urinalysis is noted. Microbiology reveals the blood cultures are no growth at 24 hours. Urine cultures are no growth. Stool for C. diff antigen and toxin is negative. Review of the medications reveals the patient to be on doxycycline and cefepime, and the patient is a lso on prednisone. ASSESSMENT AND PLAN: This is a 66-year-old male with chronic lymphocytic leukemia, stage IV, hyperte nsive diabetes, history of prostate cancer, colon cancer, obesity with a body mass index of 33, histo ry of hyperlipidemia, admitted with tachycardia and dyspnea with sepsis. CAT scan of the chest shows alveolar infiltrates in both lung bases with air bronchograms, and on cefepime and doxycycline day # 3. Would complete 4-7 days. He does have elevated procalcitonin. Cultures are negative so far. Th e patient was seen earlier this morning. We will follow closely with you. Marvin Williamson MD cc: [id number] TT: 01/03/2017 08:59:04 Confirmation # [id number] Dictation # [id number]
[2017-01-03] MEDS: IBRUTINIB 140 MG PO SCH (09:59)
[2017-01-03] MEDS: Cefepime 1gm in NS 100ml 1 GM/100 ML BAG IVPB SCH ×2 (10:00→21:16)
--- NOTE | 2017-01-03 10:31 | CARD ---
APPROVED REPORT EKG Measurement Heart [id number] <Conclusion> Atrial fibrillation with rapid ventricular response, new Left axis deviation ST elvations multiple leads, new-R/O acute [place], pericarditis, etc.
--- NOTE | 2017-01-03 11:18 | PN ---
DATE: 01/03/2017 HISTORY OF PRESENT ILLNESS: The patient is a 66-year-old male admitted to the hospital with chest pain. Chest x-ray showed bilateral infiltrates. Denies any fever, chills, rigor. No shortness of breath, no dizziness. He has history of CLL. He sees the doctors at [facility]. He also has history of prostate cancer, status post prostatectomy, history of colon cancer - s/p colectomy, no evidence of recurrence. He is currently on IV antibiotics, as per ID. CT chest showed dense alveolar infiltrate - both lungs, consistent with pneumonia. He also has hypertension. Blood pressure controlled on current medication. He also has diabetes mellitus type 2. Blood sugars controlled with current regimen. PAST MEDICAL HISTORY: Non-insulin dependent diabetes mellitus, hypertension, hyperlipidemia, CLL, prostate cancer, colon cancer. PAST SURGICAL HISTORY: Prostatectomy. ALLERGIES: No known drug allergies. PERSONAL HISTORY: Ex-smoker. HOME MEDICATIONS: Protonix, allopurinol, prednisone, glipizide, Zovirax, Bactrim, CellCept 250 mg daily. FAMILY HISTORY: Noncontributory. No positive family history in mother and father. REVIEW OF SYSTEMS: As per HPI. The rest of 12-point review of systems reviewed and negative. PHYSICAL EXAMINATION: GENERAL: Comfortable in bed, in no acute distress. VITAL SIGNS: Stable. Heart rate is 130 per minute, blood pressure 130/70, temperature 98.2, oxygen saturation 98 % room air. HEENT: Unremarkable. LYMPHS: Lymphadenopathy none. CHEST: Air entry present, equal bilaterally. Bilateral crepitations present. CARDIOVASCULAR: S1, S2 normal, tachycardia plus. ABDOMEN: Soft, nontender. No hepatosplenomegaly. No rebound tenderness. EXTREMITIES: No edema. CENTRAL NERVOUS SYSTEM: Alert, oriented x 3. No focal sensory or motor deficit. SPINE: Nontender. SKIN: No petechia, no rash. CURRENT MEDICATIONS: Zovirax 400 mg b.i.d., allopurinol 300 mg daily, cefepime , Cardizem 60 mg t.i.d., doxycycline 100 mg p.o. q. 12, glipizide 5 mg daily, insulin coverage, as per blood sugar, Lopressor 25 mg p.o. b.i.d., CellCept 250 mg daily, Percocet p.r.n., Protonix 40 mg daily, prednisone 5 mg daily. ASSESSMENT: 1. Chronic lymphocytic leukemia. 2. Bilateral dense alveolar infiltrate. 3. History of prostate cancer. 4. History of colon cancer. 5. Hyperlipidemia. 6. Hypertension. 7. Diabetes mellitus type 2. PLAN: ID consultation Dr. Williamson appreciated. He is currently on IV antibiotics - cefepime and doxycycline. We will continue Zovirax and Bactrim. Prophylaxis, he is currently on allopurinol. Also, we will continue bronchodilators. Blood sugar is controlled on current medication. He is getting glipizide and insulin coverage. He is tachycardic. Cardiology following. He is on diltiazem and beta-blockers. Continue Protonix, and continue prednisone 5 mg daily. CLL - follows at [facility]. Prostate cancer , s/p prostectomy, colon cancer s/p resection - no evidence of recurrence. Thank you, Dr. Villanueva, for allowing us to participate in the patient's care. Kallie Brenann MD cc: [id number] TT: 01/03/2017 11:17:57 Confirmation # [id number] Dictation # [id number] MTDD
[2017-01-03] MEDS: Enoxaparin 60 mg Syringe SC SCH (14:26)
--- NOTE | 2017-01-03 14:39 | PN ---
DATE: 01/03/2017 The patient denies chest pain. He was in rapid atrial fibrillation, required a total of 0.5 mg of in travenous digoxin. Cardizem was initiated at 60 mg t.i.d. today. The patient is currently in atrial fibrillation with controlled heart rate. He denies any dizziness or palpitation. He is still exper iencing mild shortness of breath and cough. PHYSICAL EXAMINATION: VITAL SIGNS: Blood pressure /64, heart rate 59, respirations 20. HEENT: Normocephalic. NECK: No JVD. CHEST: Diminished breath sounds over the bases. HEART: S1, S2 irregular. EXTREMITIES: 1+ pitting edema. LABORATORIES: Today's SMA-7 is within normal limits except for glucose of 165. Three sets of tropon ins were negative. ASSESSMENT: 1. Bilateral pneumonia. 2. Paroxysmal atrial fibrillation. 3. Chronic myelocytic leukemia. 4. History of colon cancer and prostatic cancer. 5. Hyperlipidemia. RECOMMENDATIONS: Continue Cardizem at 60 mg t.i.d., CellCept at 250 mg daily, doxycycline 100 mg twi ce a day, Lopressor 25 mg twice a day, IV Maxipime at 1 gram q. 12 hours. Start Lovenox at 60 mg twi ce a day. Long-term anticoagulation has to be cleared by the stem cutter because of the patient's u nderlying chronic leukemia. Pedro Loyola MD cc: [id number] TT: 01/03/2017 14:38:42 Confirmation # [id number] Dictation # [id number] en
[2017-01-04] MEDS: Enoxaparin 60 mg Syringe SC SCH (01:00)
--- NOTE | 2017-01-04 01:04 | CP.PCM.PN ---
Subjective - Date & Time of Evaluation Date of Evaluation: 01/04/17 Time of Evaluation: 00:59 - Subjective Subjective: S:Patient had requested xanax to help him fall asleep. I went to see patient. He was asleep. I left room. In a few minutes nurse Nasra called and told that patient woke up and asks for xanax. Pertinent medical record was reviewed. O: Last Vital Signs 3 Temp 98.0 F 01/04/17 00:01 Pulse 72 01/04/17 00:01 Resp 18 01/04/17 00:01 BP 136/80 01/04/17 00:01 Pulse Ox 92 L 01/04/17 00:01 Asleep. Not in distress. LUNGS:Normal breathing pattern. A:Anxiety/Insomnia. P:Xanax 0.5 mg PO x 1. Objective - Vital Signs/Intake and Output Vital Signs (last 24 hours): Temp Pulse Resp BP Pulse Ox 98.0 F 72 18 136/80 92 L 01/04/17 00:01 01/04/17 00:01 01/04/17 00:01 01/04/17 00:01 01/04/17 00:01 Intake and Output: 01/03/17 01/04/17 18:59 06:59 Intake Total 1080 Output Total 4 Balance 1076 - Medications Medications: Current Medications Acyclovir (Zovirax) 400 mg PO BID [facility] Last Admin: 01/03/17 17:51 Dose: 400 mg Allopurinol (Zyloprim) 300 mg PO DAILY [facility] Last Admin: 01/03/17 10:01 Dose: 300 mg Diltiazem HCl (Cardizem) 60 mg PO TID [facility] Last Admin: 01/03/17 17:49 Dose: 60 mg Doxycycline Hyclate (Doryx) 100 mg PO Q12 [facility] PRN Reason: Protocol Stop: 01/10/17 22:01 Last Admin: 01/03/17 21:16 Dose: 100 mg Enoxaparin Sodium (Lovenox) 60 mg SC Q12H [facility] PRN Reason: Protocol Last Admin: 01/03/17 14:26 Dose: 60 mg Glipizide (Glucotrol) 5 mg PO ACB [facility] Last Admin: 01/03/17 09:59 Dose: 5 mg Home Med (Home Med) 3 unit PO DAILY [facility] Last Admin: 01/03/17 09:59 Dose: 3 unit Cefepime HCl (Maxipime 1gm) 1 gm in 100 mls @ 100 mls/hr IVPB Q12 [facility] PRN Reason: Protocol Stop: 01/10/17 22:01 Last Admin: 01/03/17 21:16 Dose: 100 mls/hr Insulin Human Lispro (Humalog Med) 0 units SC ACHS [facility] PRN Reason: Protocol Last Admin: 01/03/17 21:15 Dose: Not Given Levalbuterol HCl (Xopenex) 1.25 mg IH [id number] [facility] Last Admin: 01/03/17 21:00 Dose: 1.25 mg Metoprolol Tartrate (Lopressor) 25 mg PO BID [facility] Last Admin: 01/03/17 17:50 Dose: 25 mg Mycophenolate Mofetil (Cellcept Cap) 250 mg PO DAILY [facility] Last Admin: 01/03/17 09:58 Dose: 250 mg Oxycodone/Acetaminophen (Percocet 5/325 Mg Tab) 1 tab PO Q4H PRN PRN Reason: Pain, moderate (4-7) Stop: 01/04/17 16:54 Pantoprazole Sodium (Protonix Ec Tab) 40 mg PO 0630 [facility] Last Admin: 01/03/17 05:59 Dose: 40 mg Prednisone (Prednisone Tab) 5 mg PO DAILY [facility] Last Admin: 01/03/17 10:00 Dose: 5 mg - Labs Labs: 01/02/17 07:00 01/03/17 06:50 PT 11.1 Seconds (9.9-11.8) 01/01/17 06:30 INR 1.03 (0.93-1.08) 01/01/17 06:30 APTT 25.9 Seconds (23.7-30.8) 01/01/17 06:30
[2017-01-04] MEDS: Levalbuterol 1.25 MG/3 ML Inhal Soln UD IH SCH ×2 (02:55→09:42)
[2017-01-04] MEDS ORDERED: Pantoprazole 40 mg EC Tab PO SCH (05:01)
[2017-01-04 06:22] VITALS: O2SAT 94
[2017-01-04] MEDS: Insulin Lispro (humaLOG) MEDIUM Coverage SC SCH ×2 (07:30→12:27)
[2017-01-04] MEDS: Cefepime 1gm in NS 100ml 1 GM/100 ML BAG IVPB SCH (09:42)
[2017-01-04] MEDS: IBRUTINIB 140 MG PO SCH (09:49)
[2017-01-04] MEDS ORDERED: diltiaZEM 180 mg/24 Hours CD Cap PO SCH (11:30)
--- NOTE | 2017-01-04 11:37 | PN ---
DATE: 01/04/2017 The patient is comfortable without shortness of breath, without palpitations. PHYSICAL EXAMINATION: VITAL SIGNS: Blood pressure is 156/76, the heart rate is in the 90s, atrial fibrillation. NECK: Negative JVD. LUNGS: Decreased breath sounds bilaterally. HEART: Reveals S1, S2. EXTREMITIES: Without edema. LABORATORIES: Reveals BUN and creatinine are unremarkable. The glucose is 165. The hemoglobin is d own to 14. IMPRESSION: 1. Atrial fibrillation. 2. Bilateral pneumonia. 3. History of leukemia. 4. Diabetes mellitus. 5. Hypercholesterolemia 6. Hypertension. Given these findings, the patient's heart rate is better controlled on digoxin and Cardizem. We will switch the Cardizem to long acting today and continue the digoxin as well as low dose beta blockers. Awaiting hematologic input on whether the patient can be placed on long-term anticoagulation given hi s recent leukemia. Harmeet Howard MD cc: [id number] TT: 01/04/2017 11:37:19 Confirmation # [id number] Dictation # [id number] en
[2017-01-04 12:34] VITALS: PULSE 84
[2017-01-04 13:04] VITALS: BP 130/63; RESP 20; TEMP 97.4
--- NOTE | 2017-01-04 18:19 | CP.PCM.PN ---
Subjective - Date & Time of Evaluation Date of Evaluation: 01/04/17 Time of Evaluation: 11:30 - Subjective Subjective: Comfortable in bed, not in distress, breathing much better, no cough currently, no fevers overnight. Objective - Vital Signs/Intake and Output Vital Signs (last 24 hours): Temp Pulse Resp BP Pulse Ox 97.4 F L 84 20 130/63 94 L 01/04/17 12:00 01/04/17 12:27 01/04/17 12:00 01/04/17 12:00 01/04/17 06:00 Intake and Output: 01/04/17 01/04/17 06:59 18:59 Intake Total 460 Output Total 600 Balance -140 - Labs Labs: 01/02/17 07:00 01/03/17 06:50 PT 11.1 Seconds (9.9-11.8) 01/01/17 06:30 INR 1.03 (0.93-1.08) 01/01/17 06:30 APTT 25.9 Seconds (23.7-30.8) 01/01/17 06:30 - Constitutional Appears: Non-toxic, No Acute Distress - Head Exam Head Exam: NORMAL INSPECTION - ENT Exam ENT Exam: Mucous Membranes Moist - Neck Exam Neck Exam: absent: Lymphadenopathy, Meningismus - Respiratory Exam Respiratory Exam: Decreased Breath Sounds - Cardiovascular Exam Cardiovascular Exam: +S1, +S2 - GI/Abdominal Exam GI & Abdominal Exam: Soft. absent: Tenderness Assessment and Plan - Assessment and Plan (Free Text) Plan: Assessment Sepsis secondary to healthcare-associated pneumonia, clinically improved CLL Stage 4 obesity with BMI 33 dyslipidemia HTN DM history of prostate CA history colon cancer Plan On Cefepime and Doxycycline day 4; when ready for discharge, the patient can be switched to PO Augmentin and Doxycycline for another 3-[address] Villanueva
--- NOTE | 2017-01-04 19:24 | DS ---
The patient is a 66-year-old, seen and examined, sitting in chair, seems to be comfortable. No cough , no congestion, no nausea or vomiting, no diarrhea. Eating and tolerating, ambulating, no edema, no ulcer. PHYSICAL EXAMINATION: VITAL SIGNS: He is afebrile, pulse 93, respirations 18, blood pressure 156/76. LUNGS: Bilateral fair airflow, no rhonchi or crackle. HEART: S1, S2 audible. ABDOMEN: Soft, obese, nontender, no rebound, no guarding. NEUROLOGIC: He is awake and alert, communicative, ambulatory. LABORATORY EXAM: There is no new lab available today. His blood cultures and urine cultures are neg ative. ASSESSMENT: 1. Bilateral dense basal alveolar infiltrate. 2. History of chronic lymphocytic leukemia. 3. Hypertension. 4. Morbid obesity. 5. Period of atrial fibrillation, but the patient corrected himself. 6. Non-insulin dependent diabetes. 7. History of cancer colon. 8. History of cancer prostate. PLAN: The patient is going to be discharged home today. He is asymptomatic. He is clinically stabl e. He is being discharged home on Augmentin 500 three times a day for 5 days and doxycycline 100 mg twice a day for 5 more days. He will follow up with his PMD and he will resume all his medication as prior to admission according to OCT. Mary Anne Villanueva MD cc: [phone] TT: 01/04/2017 19:24:17 wv
--- NOTE | 2017-01-10 21:44 | PQF SEPSIS ---
01/10/17 Dr. Villanueva, Sepsis is documented on progress notes of 01/02, 01/03, and 01/04 by ID physicians. Do you agree, disagree, undetermined, other with this diagnosis for this patient? If you agree, was sepsis present on admission? Thank you. Clarification of your documentation is requested to better reflect the severity of illness and intensity of treatment of your patient. Indicators present [] Temp < 96.8 or > 100.4 [x] WBC count > 12,000/mm3 or <000/mm3 or 10% immature neutrophils [] Heart Rate > 90 [] Respiratory Rate > 20 [] Fever or hypothermia [x] Chills [] Positive blood cultures [] Hypotension [] Metabolic acidosis (Elevated lactate level, anion gap or reduced blood pH) [] Acute confusion /Altered Mental Status [] Shock [] Other: [] Location in the medical record that reflects the above clinical findings: [] Treatment Provided: [] PHYSICIAN'S RESPONSE Based on your medical judgment of the clinical indicators outlined above, are you treating this patient for a known or suspected: x[] Sepsis / Septicemia Please specify organism if known [] [] SIRS (Systemic Inflammatory Response Syndrome) [] Severe Sepsis (Sepsis with Associated Organ Dysfunction) [] Fever of Unknown Origin [] Other, please indicate: [] [] If Unable to Determine, please check the box, sign and date. Present On Admission (POA) Indicator: [x] Present at the time of admission [] Not present at the time of admission [] Clinically Undetermined In responding to this query, please exercise your independent professional judgment. The fact that a question is asked does not imply that any particular answer is desired or expected. Thank you for your clarification on this documentation. If you have any questions please call:[ ] * Thank you, [ ] plumbing mechanic YENY
== END 2017-01-04 15:24 | disposition home or self-care (01) | DRG 871 ==
LOC: ED 23:29 → ERH 01-01 02:04 → 2RSO 01-01 03:01
PROVIDERS: ADMIT Internal Medicine; ATTEND Internal Medicine
DX: A41.9 Sepsis, unspecified organism (principal); J18.9 Pneumonia, unspecified organism; N17.9 Acute kidney failure, unspecified; C92.10 Chronic myeloid leukemia, BCR/ABL-positive, not having achieved remission; I27.2 Other secondary pulmonary hypertension; C91.10 Chronic lymphocytic leukemia of B-cell type not having achieved remission; I48.0 Paroxysmal atrial fibrillation; I47.1 Supraventricular tachycardia; E66.01 Morbid (severe) obesity due to excess calories; D64.9 Anemia, unspecified; E11.9 Type 2 diabetes mellitus without complications; I10 Essential (primary) hypertension; E78.5 Hyperlipidemia, unspecified; E78.00 Pure hypercholesterolemia, unspecified; F41.9 Anxiety disorder, unspecified; G47.00 Insomnia, unspecified; I45.81 Long QT syndrome; Y95 Nosocomial condition; Z68.33 Body mass index [BMI] 33.0-33.9, adult; Z79.01 Long term (current) use of anticoagulants; Z79.84 Long term (current) use of oral hypoglycemic drugs; Z85.038 Personal history of other malignant neoplasm of large intestine; Z85.46 Personal history of malignant neoplasm of prostate; Z87.891 Personal history of nicotine dependence; Z90.49 Acquired absence of other specified parts of digestive tract; Z90.79 Acquired absence of other genital organ(s); Z92.21 Personal history of antineoplastic chemotherapy; H26.9 Unspecified cataract; R00.0 Tachycardia, unspecified

== ENCOUNTER 2017-03-17 12:02 | Day surgery (SDC) | payer MEDICARE ==
[2017-01-15 11:27] VITALS: BMI 33.7
[2017-03-17 12:47] LABS: BASO # 0.03 K/mm3 (0.0-2.0); BASO % 0.2 % (0.0-3.0); EOS # 0.2 (0.0-0.7); EOS % 1.3 % (1.5-5.0); GRAN # 10.54 (1.4-6.5); HEMOGLOBIN 12.4 gm/dL (14.0-18.0); LYMPH # 1.7 (1.2-3.4); LYMPH % 12.7 % (22.0-35.0); MEAN CELL VOLUME 91.1 fL (80.0-105.0); MEAN CORPUSCULAR HEMOGLOBIN 28.2 pg (25.0-35.0); MEAN PLATELET VOLUME 10.8 fl (7.0-11.0); MONO # 1.1 (0.1-0.6); MONO % 7.8 % (1.0-6.0); PLATELET COUNT 273 10^3/uL (120.0-450.0); RBC 4.39 10^6/uL (3.5-6.1); RED CELL DISTRIBUTION WIDTH 14.6 % (11.5-14.5); WHITE BLOOD COUNT 13.5 10^3/ul (4.5-11.0)
[2017-03-17 12:58] LABS: BLOOD UREA NITROGEN 11 mg/dL (7-21); CALCIUM 9.5 mg/dL (8.4-10.5); GFR AFRICAN-AMERICAN > 60; GFR NON-AFRICAN AMERICAN > 60
[2017-03-17 13:00] LABS: INR 1.06 (0.93-1.08); PARTIAL THROMBOPLASTIN TIME 26.9 Seconds (23.7-30.8); PROTHROMBIN TIME 11.4 Seconds (9.9-11.8)
--- NOTE | 2017-03-17 13:03 | CP.SDSHP ---
Same Day Surgery H & P - History Proposed Procedure: left thoracentesis. Pre-Op Diagnosis: large left pleural effusion,atelactesis. - Previous Medical/Surgical History Cardiac: Hypertension, Arrhythmia Pulmonary: Dyspnea, Other (large left pleural effusion.) Endocrine/Metabolic: Diabetes, Obesity Pain: 0. No Pain Previous Surgical History: TOTAL COLECTOMY,prostatectomy. - Allergies Allergies: Allergies No Known Allergies Allergy (Verified 11/10/13 14:39) - Physical Exam General Appearance: WNL. Mental Status: Alert & Oriented x3 Neuro: WNL Heart: WNL Lungs: Other (RT SIDE CLEAR LEFT ABSENT BREATH SOUNDS.) - {Optional Preform as Required} Other Pertinent Findings: HX OF COLON CA S/P SURGERY. HX OF CLL. - Impression Impression: LARGE LEFT PLEURAL EFFUSION ATELACTESIS. - Date & Time Date: 03/17/17 Time: 13:00 Short Stay Discharge - Short Stay Discharge Admitting Diagnosis/Reason for Visit: PLEURAL EFFUSION J90 Disposition: HOME/ ROUTINE Referrals: Gail Diaz DO [Primary Care Provider] -
[2017-03-17 13:15] VITALS: O2SAT 95
[2017-03-17] MEDS ORDERED: Oxycodone/Acetaminophen 5/325 mg Tab PO PRN (14:17)
[2017-03-17] MEDS ORDERED: Sodium Chloride 0.45% 1,000 ML IV SCH (14:30)
[2017-03-17 15:25] VITALS: RESP 20; TEMP 98.1
[2017-03-17 16:06] VITALS: BP 161/71; PULSE 104
--- NOTE | 2017-03-17 17:27 | US ---
PROCEDURE: Ultrasound guided left thoracentesis. CLINICAL HISTORY: New left pleural effusion. Shortness of breath. Needs diagnostic and therapeutic thoracentesis. PHYSICIAN(S): Harmeet Gamez MD. TECHNIQUE: The relative risks and indications of the procedure were explained to the patient and consent obtained. The patient was placed in a sitting position on the stretcher and sonography of the right chest performed. This revealed a large leftpleural effusion. A left posterolateral intercostal approach was selected and the area prepped and draped usual sterile fashion. 1% Xylocaine was used to anesthetize the skin and soft tissues. A 7 Serbian thoracentesis catheter was trocared into the left pleural cavity and 2500of non clotting bloody fluid aspirated. Specimens were sent to the lab. IMPRESSION: 1. Ultrasound guided left thoracentesis. 2500cc of non clotting, bloodyfluid were aspirated.
[2017-03-17 18:00] LABS: BODY FLUID TYPE PLEURAL
[2017-03-17 18:22] LABS: BF GROSS APPEARANCE BLOODY (CLEAR); BODY FLUID MONO/MACROPHAGE 0 % (0-0); BODY FLUID TOTAL COUNT 100 (0-0)
--- NOTE | 2017-03-18 10:02 | CT ---
PROCEDURE: CT Chest with contrast HISTORY: CT CHEST W/ IV CONTRAST COMPARISON: None. TECHNIQUE: Contiguous axial images were obtained through the chest with intravenous contrast enhancement. Sagittal and coronal reconstructions were performed. IV contrast: 100 cc of Omni 350 Radiation dose (DLP): 509 mGy-cm. This CT exam was performed using one or more of the following dose reduction techniques: Automated exposure control, adjustment of the mA and/or kV according to patient size, and/or use of iterative reconstruction technique. FINDINGS: LUNGS: There is a small left effusion. There is focal consolidation adjacent to the fusion in the left lower lobe. There is also a more diffuse infiltrate in the left upper lobe suspicious for pneumonia. MEDIASTINUM: Unremarkable thoracic aorta. No aneurysm or dissection. Normal sized heart. Main pulmonary artery unremarkable. No vascular congestion. No lymphadenopathy. PLEURA: Small left effusion. Small pericardial effusion. BONES: No fracture. No destructive lesion. UPPER ABDOMEN: Grossly unremarkable. OTHER FINDINGS: There is a mass arising from the inferior pole of the left lobe of the thyroid extending into the superior mediastinum. This is best seen on coronal image 48 where it measures 43 x 26 mm. On axial image 28 it measures 33 mm in diameter. IMPRESSION: Left upper lobe infiltrate consistent with pneumonia. Small pleural effusion. Focal consolidation at the left lung base which may represent atelectasis or pneumonia. Small pericardial effusion. Mass in the inferior pole of the left lobe of the thyroid. Further evaluation is recommended
[2017-03-19 10:48] LABS: TOTAL PROTEIN PLEURAL FLUID 4.4 g/dL
== END 2017-03-17 16:10 | disposition home or self-care (01) ==
LOC: OPSURG 12:02
PROVIDERS: ATTEND Radiology Vascular & Interventional Radiology
DX: J90 Pleural effusion, not elsewhere classified (principal); J98.11 Atelectasis; I10 Essential (primary) hypertension; E11.9 Type 2 diabetes mellitus without complications; I49.9 Cardiac arrhythmia, unspecified; E66.9 Obesity, unspecified; Z68.32 Body mass index [BMI] 32.0-32.9, adult; Z79.84 Long term (current) use of oral hypoglycemic drugs
CPT/HCPCS: 32555; 36415; 71260; 80048; 82945; 83615; 83986; 84157; 85025; 85610; 85730; 87015; 87070; 87075; 87101; 87116; 87206; 88108; 89051; J7030

== ENCOUNTER 2018-06-22 13:28 | Observation (INO) | payer MEDICARE ==
[2018-06-22 13:29] VITALS: PULSE 132
[2018-06-22 13:33] VITALS: BMI 33.6
[2018-06-22] MEDS ORDERED: diltiaZEM IVPB 100mg in NS 100 ML IV PRN (13:48)
--- NOTE | 2018-06-22 13:49 | ED PDOC ---
Arrival/HPI - General Chief Complaint: Palpitations Time Seen by Provider: 06/22/18 13:30 Historian: Patient - History of Present Illness Narrative History of Present Illness (Text): 06/22/18 13:47 Patient is a 68 year old male whose past medical history includes hypertension, diabetes mellitus, colon cancer, s/p colon resection, leukemia, and atrial fibrillation, who was instructed to present to the Emergency department by his head miller due to palpitations. Patient reports that he was at his head miller's office this morning for a routine follow-up when he was instructed to present to the hospital. Patient admits to dizziness, which started today, and denies any chest pain. He states having shortness of breath, but notes that it is "routine" as he has "lung issues". Of note patient takes Metoprolol 25mg daily but didn't take his medication today. He also notes taking medication for his leukemia. Patient has a history of atrial fibrillation and used to take Eliquis, but per patient he has discontinued taking the medication. Patient states that he hasn't taken Aspirin today. He notes bilateral lower extremity edema, which is not worse than usual. Patient denies fevers, chills, cough, chest pain, abdominal pain, nausea, vomiting, diarrhea, back pain, neck pain, headache,or any other complaint. Hematology/Oncology: Cash Management Clerk: Supervisor Blood: Time/Duration: Prior to Arrival Symptom Onset: Sudden Symptom Course: Unchanged Context: Other (physician office) Past Medical History - Provider Review Nursing Documentation Reviewed: Yes - Infectious Disease Hx of Infectious Diseases: None - Tetanus Immunization Tetanus Immunization: Unknown - Cardiac Hx Atrial Fibrillation: Yes Hx Hypertension: Yes Hx Peripheral Edema: Yes - Pulmonary Hx Bronchitis: Yes ("pneumonitis") - Neurological Hx Neurological Disorder: No - HEENT Hx HEENT Disorder: Yes Hx Blind: No Hx Cataracts: Yes Hx Deafness: No Hx Difficulty Chewing: No Hx Epistaxis: No Hx Glaucoma: No Hx Macular Degeneration: No - Renal Hx Renal Disorder: No - Endocrine/Metabolic Hx Hyperthyroidism: No Hx Hypothyroidism: No - Hematological/Oncological Hx Blood Transfusions: No Hx Blood Transfusion Reaction: No - Integumentary Hx Dermatological Disorder: No - Musculoskeletal/Rheumatological Hx Musculoskeletal Disorders: No - Gastrointestinal Hx Crohn's Disease: No Hx Diverticulitis: No Hx Gastroesophageal Reflux: No Hx Gastrointestinal Ulcer: No Hx Liver Failure: No - Genitourinary/Gynecological Hx Genitourinary Disorders: Yes Hx Hematuria: No Hx Incontinence: No Hx Prostate Problems: Yes (prostate removed) - Psychiatric Hx Depression: No Hx Emotional Abuse: No Hx Physical Abuse: No Hx Substance Use: No - Surgical History Hx Amputation: No Hx Appendectomy: No Hx Cardiac Catheterization: No Hx Cholecystectomy: No Hx Coronary Stent: No Hx Gastric Bypass Surgery: No Hx Hysterectomy: No Hx Joint Replacement: No Hx Kidney Transplant: No Hx Liver Transplant: No Hx Mastectomy: No Hx Open Heart Surgery: No Hx Orthopedic Surgery: No Hx Splenectomy: No Hx Valve Replacement: No - Anesthesia Hx Anesthesia Reactions: No Hx Malignant Hyperthermia: No - Suicidal Assessment Feels Threatened In Home Enviroment: No Family/Social History - Physician Review Nursing Documentation Reviewed: Yes Family/Social History: No Known Family HX Smoking Status: Never Smoked Hx Alcohol Use: No Hx Substance Use: No Hx Substance Use Treatment: No Allergies/Home Meds Allergies/Adverse Reactions: Allergies No Known Allergies Allergy (Verified 11/10/13 14:39) Home Medications: Home Meds Medication Instructions Recorded Confirmed Acyclovir [Zovirax] 400 mg PO BID 01/01/17 06/22/18 Atropine/Diphenoxylate [Lonox 1 tab PO PRN PRN 01/01/17 06/22/18 0.025 MG-2.5 MG] GlipiZIDE [Glucotrol] 5 mg PO DAILY 01/01/17 06/22/18 Ibrutinib [Imbruvica] 140 mg PO TID 01/01/17 06/22/18 Mycophenolate [Cellcept] 250 mg PO DAILY 01/01/17 06/22/18 Sulfamethoxazole/Trimethoprim 1 tab PO .3XW 01/01/17 06/22/18 [Bactrim DS 800 mg-160 mg] predniSONE [predniSONE Tab] 5 mg PO DAILY 01/01/17 06/22/18 Metoprolol Tartrate [Lopressor] 25 mg PO DAILY 03/17/17 06/22/18 Bimatoprost [Lumigan] 1 drop OU DAILY 06/22/18 06/22/18 Fluticasone/Vilanterol [Breo 1 puff NEB DAILY 06/22/18 06/22/18 Ellipta 100-25 Mcg INH] Tiotropium [Spiriva] 1 cap NEB DAILY 06/22/18 06/22/18 metFORMIN [glucOPHAGE] 500 mg PO DAILY 06/22/18 06/22/18 Review of Systems - Physician Review All systems were reviewed & negative as marked: Yes - Review of Systems Constitutional: absent: Fevers Respiratory: SOB. absent: Cough Cardiovascular: Palpitations, Edema. absent: Chest Pain Gastrointestinal: absent: Abdominal Pain, Diarrhea, Nausea, Vomiting Musculoskeletal: absent: Back Pain, Neck Pain Neurological: Dizziness. absent: Headache Physical Exam Vital Signs Reviewed: Yes Vital Signs Temp Pulse Pulse Resp BP Pulse Ox 06/22/18 13:46 161 H 06/22/18 13:33 97.8 F 160 H 22 127/85 99 Temperature: Afebrile Blood Pressure: Normal Pulse: Tachycardic Respiratory Rate: Normal Appearance: Positive for: Well-Appearing Mental Status: Positive for: Alert and Oriented X 3 Finger Stick Blood Glucose: 207 - Systems Exam Head: Present: Atraumatic, Normocephalic Pupils: Present: PERRL Extroacular Muscles: Present: EOMI Conjunctiva: Present: Normal Mouth: Present: Moist Mucous Membranes Neck: Present: Normal Range of Motion. No: Meningeal Signs Respiratory/Chest: Present: Clear to Auscultation, Good Air Exchange. No: Respiratory Distress, Accessory Muscle Use Cardiovascular: Present: Normal S1, S2, Tachycardic, Other (irregularly irregular rhythm). No: Murmurs Abdomen: No: Tenderness, Distention, Peritoneal Signs Back: Present: Normal Inspection Upper Extremity: Present: Normal Inspection. No: Cyanosis, Edema Lower Extremity: Present: Normal Inspection, Edema (2+ bilateral pitting edema) Neurological: Present: GCS=15, CN II-XII Intact, Speech Normal, Motor Func Grossly Intact, Normal Sensory Function, Normal Cerebellar Funct Skin: Present: Warm, Dry, Normal Color. No: Rashes Psychiatric: Present: Alert, Oriented x 3, Normal Insight, Normal Concentration Medical Decision Making ED Course and Treatment: 06/22/18 13:48 Impression: 68 year old male complaining of palpitations and dizziness. aflutter/afib w/ RVR on EKG. Pending labs and imaging. Stable pressures. No Chest pain. Dizzyness is described as a lightheadedness and pt denies any n/v or FND or trauma. Neuro e xam unremarkable. No active chemo. Differential Diagnosis included but are not limited to: Plan: -- Labs -- Cardiac enzymes -- CBC -- EKG -- Chest X-ray -- Diltiazem -- Reassess and disposition Prior Visits: Notes and results from previous visits were reviewed. Patient was last seen in the emergency department on 12/31/16 for chest pain and was hospitalized for atrial fibrillation and chest pain. Progress Notes: 06/22/18 14:28 EKG improved: Aflutter, Rate <100 w/ stable pressures: cardizem drip running. Pt notes improvement of symptoms. leukocytosis likely 2/2 leukemia hx. No dysuria / rash/ cough / fever / sob / headache. No meningeal signs. troponin wnl bnp slightly elevated no signs of fluid overload on XR or exam Discussed case with , who stated that comes to [facility] [place] 06/22/18 14:29 Discussed case with , who is aware of patient, and recommends to continue Cardizem drip on telemetry floor, and will likely need nuclear stress test in the morning. 06/22/18 14:36 Discussed case with , who is aware of and agrees to admit patient to her service. - Lab Interpretations Lab Results: Lab Results 06/22/18 13:44: POC Glucose (mg/dL) 207 H - RAD Interpretation Narrative RAD Interpretations (Text): 06/22/18 14:12 Chest X-ray showed no infiltrates. Interpreted by me. Radiology Orders: 06/22/18 13:39 CHEST PORTABLE [RAD] Stat Administrator Health Care Facility: ED Physician - EKG Interpretation EKG Interpretation (Text): 06/22/18 13:48 EKG shows atrial fibrillation at 160 BPM. No STEMI. Interpreted by me. 06/22/18 13:57 Repeat EKG shows atrial flutter at 80 BPM. No STEMI. Interpreted by me. 1 Interpreted by ED Physician: Yes Type: 12 lead EKG - Scribe Statement The provider has reviewed the documentation as recorded by the Scribe Harpal Jovel Provider Scribe Attestation: All medical record entries made by the Scribe were at my direction and personally dictated by me. I have reviewed the chart and agree that the record accurately reflects my personal performance of the history, physical exam, medical decision making, and the department course for this patient. I have also personally directed, reviewed, and agree with the discharge instructions and disposition. Disposition/Present on Arrival - Present on Arrival Any Indicators Present on Arrival: No History of DVT/PE: No History of Uncontrolled Diabetes: No Urinary Catheter: No History of Decub. Ulcer: No History Surgical Site Infection Following: None - Disposition Have Diagnosis and Disposition been Completed?: Yes Diagnosis: Atrial flutter Disposition: HOSPITALIZED Disposition Time: 14:45 Patient Problems: Current Active Problems Problem Status Onset Atrial flutter Acute Condition: GOOD Referrals: Gail Diaz DO [Primary Care Provider] - Follow up with primary Forms: [employer] (Amharic)
[2018-06-22 14:00] LABS: BASO # 0.03 K/mm3 (0.0-2.0); BASO % 0.2 % (0.0-3.0); EOS # 0.3 (0.0-0.7); EOS % 1.8 % (1.5-5.0); GRAN # 9.24 (1.4-6.5); GRAN % 58.3 % (50.0-68.0); HEMOGLOBIN 15.1 g/dL (14.0-18.0); LYMPH # 5.2 (1.2-3.4); LYMPH % 32.5 % (22.0-35.0); MEAN CELL VOLUME 96.3 fl (80.0-105.0); MEAN CORPUSCULAR HEMOGLOBIN 31.3 pg (25.0-35.0); MEAN CORPUSCULAR HGB CONC 32.5 g/dl (31.0-37.0); MEAN PLATELET VOLUME 11.3 fl (7.0-11.0); MONO # 1.2 (0.1-0.6); MONO % 7.2 % (1.0-6.0); RBC 4.83 10^6/uL (3.5-6.1); RED CELL DISTRIBUTION WIDTH 12.4 % (11.5-14.5); WHITE BLOOD COUNT 15.9 10^3/uL (4.5-11.0)
[2018-06-22 14:08] LABS: ALB/GLOB RATIO 1.6 (1.1-1.8); BLOOD UREA NITROGEN 17 mg/dL (7-21); CALCIUM 9.8 mg/dL (8.4-10.5); GFR NON-AFRICAN AMERICAN > 60; LIPASE 112 U/L (23-300)
[2018-06-22 14:20] LABS: B-TYPE NATRIURETIC PEPTIDE 532 pg/mL (0-450); TROPONIN I < 0.01 ng/mL
[2018-06-22 14:21] LABS: ALT/SGPT 33 U/L (7-56); AST/SGOT 22 U/L (17-59)
--- NOTE | 2018-06-22 14:28 | RAD ---
Date of service: 06/22/2018 HISTORY: 01/01/2017 COMPARISON: No prior. FINDINGS: LUNGS: No active pulmonary disease. PLEURA: No significant pleural effusion identified, no pneumothorax apparent. CARDIOVASCULAR: No atherosclerotic calcification present No radiographic findings to suggest acute or significant cardiovascular disease. OSSEOUS STRUCTURES: No significant abnormalities. VISUALIZED UPPER ABDOMEN: Normal. OTHER FINDINGS: None. IMPRESSION: No active disease. No significant interval change compared to the prior examination(s).
--- NOTE | 2018-06-22 18:02 | CARD ---
APPROVED REPORT Date of service: 06/22/2018 EKG Measurement Heart [id number] <Conclusion> Atrial flutter with 4:1 AV conduction Left axis deviation Inferior infarct, age undetermined Abnormal ECG
--- NOTE | 2018-06-22 18:14 | CARD ---
APPROVED REPORT Date of service: 06/22/2018 EKG Measurement Heart [id number] <Conclusion> Sinus tachycardia Left axis deviation Inferior infarct, age undetermined Abnormal ECG
[2018-06-22] MEDS ORDERED: Influenza Vaccine 60 mcg/0.5 mL SYR (4YR UP) IM ONE (18:58)
[2018-06-22] MEDS ORDERED: Pneumococcal 23-Valent Vaccine IM ONE (18:58)
[2018-06-22] MEDS ORDERED: Latanoprost 2.5 ml Opht Soln OU SCH (22:00)
[2018-06-22] MEDS: Insulin Lispro (humaLOG) MEDIUM Coverage SC SCH (22:20)
--- NOTE | 2018-06-23 01:27 | HP ---
HISTORY OF PRESENT ILLNESS: Patient is 68 years old male who had palpitations. He was seen in Cardiology office and was found to have palpitations who advised him to come to emergency room. Patient states he was feeling lightheaded and was dizzy that started earlier this morning. He denies any fever or chills. No history of cough or congestion. He did not have any chest pain; however, he has been having shortness of breath. Denies any abdominal pain. Did have some loose bowel movement. PAST MEDICAL HISTORY: Significant for AFib. He was on Eliquis, but was stopped later on because he converted to sinus rhythm. Does have intermittent shortness of breath. Does admit having bilateral leg swelling that recently has been increasing. Past medical history is significant for: 1. Mls-mxanzjl-edundbdes diabetes. 2. Hypertension. 3. History of CA of colon status post partial colon resection. 4. Chronic lymphocytic leukemia. 5. History of CA of prostate. ALLERGIES: HE IS NOT ALLERGIC TO ANY MEDICATION. MEDICATION AT HOME: He is on Spiriva, he is on Breo Ellipta, he is on Lumigan, metformin 500 daily, metoprolol 25 daily, prednisone 5 mg daily, he is on CellCept 250 daily, he is on Imbruvica 140 mg three times a day, glipizide 5 mg daily, and he takes acyclovir. SOCIAL HISTORY: He smoked for a brief period in the remote past. Not smoking or drinking. PHYSICAL EXAMINATION GENERAL: He is awake, alert, and oriented. Able to communicate. VITAL SIGNS: He is afebrile, pulse 84, respirations 20, and blood pressure 164/85. Upon arrival, his heart rate was 160 and was in a flutter. He was given Cardizem . LUNGS: Bilateral fair airflow. No rhonchi or crackle. HEART: S1, S2 audible. ABDOMEN: Soft, nontender. No rebound. No guarding. NEUROLOGIC: Patient is awake, alert, and oriented. Able to communicate. LABORATORY DATA: WBC 16.9, hemoglobin 15, hematocrit 46.5, and platelets 227. Chemistry: Sodium 138, potassium 4.2, chloride 107, CO2 of 22, BUN 17, creatinine 1.1, blood sugar of 239. LFTs are within normal limits. ASSESSMENT: 1. Atrial fibrillation/flutter. 2. Hypertension. 3. Chronic lymphocytic leukemia. 4. History of cancer of prostate. 5. Rlq-gptegjo-dbmnvhesr .diabetes. PLAN: Patient is currently on Cardizem drip. He is on metformin, glipizide. Send stool for C. diff. We started on metoprolol. He is on Spiriva. He is on acyclovir. We will follow up with electrolytes in the a.m. Cardiology consult by Dr. Aponte has been requested. Mary Anne Villanueva MD
[2018-06-23 06:43] VITALS: O2SAT 96
[2018-06-23 06:45] LABS: BLOOD UREA NITROGEN 17 mg/dL (7-21); GFR NON-AFRICAN AMERICAN 50
[2018-06-23 06:46] LABS: ALB/GLOB RATIO 1.4 (1.1-1.8); ALBUMIN 3.6 g/dL (3.0-4.8); ALT/SGPT 30 U/L (7-56); AST/SGOT 19 U/L (17-59)
[2018-06-23 07:01] LABS: FREE T4 1.2 ng/dL (0.78-2.19)
[2018-06-23 07:03] LABS: BASO # 0.02 K/mm3 (0.0-2.0); BASO % 0.2 % (0.0-3.0); EOS # 0.3 (0.0-0.7); EOS % 2.6 % (1.5-5.0); GRAN # 6.04 (1.4-6.5); GRAN % 56.3 % (50.0-68.0); HEMOGLOBIN 13.5 g/dL (14.0-18.0); LYMPH # 3.6 (1.2-3.4); LYMPH % 33.5 % (22.0-35.0); MEAN CELL VOLUME 95.9 fl (80.0-105.0); MEAN CORPUSCULAR HEMOGLOBIN 30.4 pg (25.0-35.0); MEAN CORPUSCULAR HGB CONC 31.7 g/dl (31.0-37.0); MEAN PLATELET VOLUME 11.2 fl (7.0-11.0); MONO # 0.8 (0.1-0.6); MONO % 7.4 % (1.0-6.0); RBC 4.44 10^6/uL (3.5-6.1); RED CELL DISTRIBUTION WIDTH 12.3 % (11.5-14.5); WHITE BLOOD COUNT 10.7 10^3/uL (4.5-11.0)
[2018-06-23] MEDS: Insulin Lispro (humaLOG) MEDIUM Coverage SC SCH ×2 (08:31→12:27)
[2018-06-23] MEDS ORDERED: Tiotropium 18 mcg Cap For Inhalation INH SCH (10:00)
[2018-06-23 12:03] VITALS: BP 112/71; RESP 18; TEMP 98.1
[2018-06-23 15:08] VITALS: PULSE 70
--- NOTE | 2018-06-23 19:24 | DS ---
HISTORY OF PRESENT ILLNESS: The patient is 68 years old, who was sent from Dr. Aponte's office after he was found to have AFib. The patient was started on Cardizem drip and his heart rate was pretty much under control and he was converted to sinus. Last time, the patient was started on Eliquis, but it was taken off by want ad supervisor. Currently, he was only on aspirin. The patient remained stable overnight. His heart rate was controlled and so was his AFib. Was seen by Dr. Aponte, being discharged today. We are going to increase the dose of metoprolol to 25 mg three times a day. PHYSICAL EXAMINATION: GENERAL: Today, he is awake, alert, oriented and communicative. VITAL SIGNS: He is afebrile. Pulse 79, respirations 19 and blood pressure 124/72. LUNGS: Bilateral fair airflow. No rhonchi or crackle. HEART: S1 and S2, audible. ABDOMEN: Soft, obese, and nontender. No rebound. No guarding. NEUROLOGIC: The patient is awake, alert, oriented and communicative. Nonfocal. LABORATORY DATA: WBC 10.7, hemoglobin 13.5, hematocrit 42.6 and platelet of 211. Chemistry; sodium 137, potassium 3.8, chloride 104, CO2 of 25, BUN 17 and creatinine 1.4. Blood sugar of 181. ASSESSMENT: 1. Paroxysmal atrial fibrillation. 2. Hypertension. 3. Chronic lymphocytic leukemia. 4. Noninsulin-dependent diabetes. 5. History of carcinoma of colon status post partial colectomy. PLAN: The patient is being discharged home today on aspirin 81 mg daily. He is given prescription of metoprolol tartrate 25 mg three times a day and meds-to-bed and he will follow with Dr. Aponte next Wednesday. They will make further decision about he going for possible ablation and he will talk to the want ad supervisor, if he has to be started on anticoagulant to prevent stroke. Mary Anne Villanueva MD
--- NOTE | 2018-06-24 02:25 | CON ---
DATE: 06/23/2018 INPATIENT ELECTROPHYSIOLOGY CONSULTATION REASON FOR EVALUATION: 1. Atrial flutter with rapid ventricular response. 2. Hypertension. 3. Coronary artery disease and atherosclerotic heart disease. PHYSICIAN REQUESTING CONSULT: Dr. Villanueva. Thank you very much for this consult. HISTORY OF PRESENT ILLNESS: Mr. Keenan Paulson is a 68-year-old male with past medical history significant for diabetes; hypertension; obesity; CA of colon, status post resection; lymphocytic leukemia; and prostate cancer who presents to [facility] after being sent from my office in atrial flutter with rapid ventricular response. The patient at the time of evaluation was noted to have intermittent symptoms of dizziness, lightheadedness and listlessness. EKG revealed atrial flutter with variable conduction with resultant heart rate over 151 beats per minute. He was sent in to [facility] for further evaluation and management. of his arrival, the patient initially was started on Cardizem drip, which did control his atrial flutter, ultimately he did spontaneously converted to normal sinus rhythm. He will be continued on metoprolol and at this point appears to be stable. Prior to presenting in this way, he did have episodes of dyspnea on exertion and feeling sluggish. At that point, it was sought he would require an ischemic evaluation in the form of stress test. I was informed of his admission, he was switched over to divided dose metoprolol and a stress test had been ordered. REVIEW OF SYSTEMS: At the time of evaluation, currently, the patient is without fever, chills, cough, wheezes, sputum production, lower extremity edema, nausea, vomiting, diarrhea, constipation, change in stool. No fevers or chills, heat or cold intolerance, skin related changes, dizziness, altered mentation, altered vision. The remainder of the review of system is within normal limits. MEDICATIONS AT THE TIME OF ADMISSION: Include the following; Spiriva, Breo Ellipta, Lumigan, metformin 500 mg p.o daily, metoprolol 25 mg XL daily, prednisone 5 mg daily, CellCept 250 mg daily, Imbruvica that is 140 mg three times a day, glipizide 5 mg p.o. daily as well as acyclovir. SOCIAL HISTORY: Negative for tobacco, ETOH or drug abuse currently. The patient is a retired cilnical scientist. Currently, he does do some [employer] work. LABORATORY DATA: On review of current lab work, the patient has a white count of 10.7 down from 15.9, H and H went from 15.1 to 13.5, and platelet count of 211. Sodium is 137, potassium is 3.8, and BUN and creatinine is 14 and 1.4 respectively. Hemoglobin A1c is 8.5 and calcium is 9. ALT and AST is 19 and 30 respectively. Alk phos is 54. Troponin initially was less than 0.01. BNP is 532. Albumin is 4 and globulin is 2.4. TSH is 2.8 and free T4 is 1.20. PHYSICAL EXAMINATION: VITAL SIGNS: Temperature is 98.1, pulse rate of 66, blood pressure is 112/71, and respirations of 18. GENERAL: He is a well-developed, well-nourished, obese, male, in no acute distress, and able to speak in complete sentences. HEENT: Head is normocephalic and atraumatic. He wears glasses. There is no livia facial asymmetry. Mucous membranes appear moist. Dentition is intact. NECK: Supple. No jugular venous distention. No carotid bruits. CHEST: Clear to auscultation bilaterally. CARDIOVASCULAR: Currently, regular rate and rhythm. S1 and S2. No S3 or S4. PMI is nondisplaced. ABDOMEN: Obese, soft, nontender, and nondistended. Positive for bowel sounds. EXTREMITIES: No cyanosis, clubbing, or edema is noted. IMAGING: On review of EKG on presentation, the patient has typical atrial flutter with evidence of prior inferior myocardial infarction. ASSESSMENT AND PLAN: 1. Atrial flutter which appears to be typical, they did resolve spontaneously. The patient will receive a reduction of his losartan from 50 mg to 25 mg, discontinue of his amlodipine, the patient will be initiated on metoprolol 25 mg 3 times a day. The patient will undergo with 24-hour Holter monitor as well. Outpatient nuclear stress test has also been arranged. Previously, the patient had been on anticoagulation in the form of Eliquis, which discontinued as per his electrical equipment technician who practices in [facility]. After a conversation with the patient's primary doctor Joe. We will have re-discussion in terms of his anticoagulation candidacy, aspirin 81 mg p.o. daily has been recommended. Again, the patient will follow up in 1 week for further evaluation and management. 2. Hypertension appears to be relatively controlled at this point. 3. Coronary artery disease, atherosclerotic heart disease. The patient with significant risk factors in the form of diabetes and hypertension. The patient is to continue medical therapy, stress test will be performed on an outpatient basis at [facility]. Thank you for allowing me to participate in the care of your patient. Please do not hesitate to call if you have any questions in regards to his care. Ray Aponte MD cc: Gail Diaz DO
== END 2018-06-23 15:27 | disposition home or self-care (01) ==
LOC: ED 13:28 → INTOOBSV 14:42 → ERH 14:42 → 2RNO 16:59
PROVIDERS: ADMIT Internal Medicine; ATTEND Internal Medicine
DX: I48.0 Paroxysmal atrial fibrillation (principal); I10 Essential (primary) hypertension; E11.9 Type 2 diabetes mellitus without complications; I25.10 Atherosclerotic heart disease of native coronary artery without angina pectoris; C91.10 Chronic lymphocytic leukemia of B-cell type not having achieved remission; E66.9 Obesity, unspecified; Z85.038 Personal history of other malignant neoplasm of large intestine; Z90.49 Acquired absence of other specified parts of digestive tract; Z85.46 Personal history of malignant neoplasm of prostate; Z87.891 Personal history of nicotine dependence; Z79.84 Long term (current) use of oral hypoglycemic drugs
CPT/HCPCS: 36415; 71045; 80053; 82948; 83036; 83690; 83735; 83880; 84100; 84439; 84443; 84484; 85025; 87324; 93005; 96374; 96375; 99285; G0378; J1940; J7517; J8499